=== PATIENT | male | born 1960 | race African-American/Black ===

== ENCOUNTER 2018-11-02 19:30 | Emergency (ER) | payer MEDICAID, OTHER ==
[~2018-11-02] VITALS: Ht 172.7 cm; Wt 102.0 kg
[2018-11-02] MEDS ORDERED: SODIUM CHLORIDE 0.9% 1,000 ML IV ONE (22:43)
[2018-11-02] MEDS ORDERED: MORPHINE SULFATE 4 MG/ML CPJ (NOT FOR IM USE) IV STA (22:43)
[2018-11-02] MEDS ORDERED: ONDANSETRON HCL 4MG/2ML INJ IV STA (22:43)
[2018-11-02] MEDS ORDERED: CLONIDINE 0.2MG TABLET PO ONE (22:45)
[2018-11-02] MEDS ORDERED: KETOROLAC 30MG/ML VIAL IV ONE (22:45)
[2018-11-03 00:23] LABS: BASOPHILS % 0.7 % (0.0-2.0); EOSINOPHILS % 1.1 % (0.0-5.0); HEMATOCRIT. 40.1 % (42.0-52.0); HEMOGLOBIN. 13.4 g/dL (14.0-18.0); LYMPHOCYTES % 26.4 % (20.0-50.0); MEAN CORPUSCULAR HEMOGLOBIN 29.1 pg (28.0-32.0); MEAN CORPUSCULAR VOLUME 86.9 fL (80.0-94.0); MEAN PLATELET VOLUME 8.4 fl (7.4-10.4); MONOCYTES % 5.7 % (2.0-8.0); NEUTROPHILS % 66.1 % (40.0-76.0); PLATELET 215 x1000/uL (130-400); RED BLOOD CELL COUNT 4.61 mill/uL (4.7-6.1); RED CELL DISTRIBUTION WIDTH 13.3 % (11.6-14.6)
[2018-11-03 00:30] LABS: CHLORIDE 99 mEq/L (98-107)
[2018-11-03 00:31] LABS: PROTHROMBIN TIME 9.7 sec (9.1-11.1)
[2018-11-03 00:41] LABS: CLARITY URINE CLEAR (CLEAR); COLOR URINE YELLOW (YELLOW); KETONES URINE NEGATIVE (NEGATIVE); LEUKOCYTE ESTERASE URINE NEGATIVE (NEGATIVE); NITRITE URINE NEGATIVE (NEGATIVE); OCCULT BLOOD URINE NEGATIVE (NEGATIVE); PH URINE 5.5 (4.5-8.0); PROTEIN URINE NEGATIVE (NEGATIVE); SPECIFIC GRAVITY URINE 1.009 (1.005-1.030); UROBILINOGEN URINE 0.2 E.U./dL (0.2-1.0)
[2018-11-03] MEDS ORDERED: SILVER SULFADIAZINE 1% CREAM 25GM TOP ONE (00:45)
[2018-11-03] MEDS ORDERED: MAGNESIUM CITRATE 300ML SOLUTION PO ONE (03:00)
[2018-11-03] MEDS ORDERED: POTASSIUM CHLORIDE 20MEQ TABLET SR PO NR (03:00)
[2018-11-03 03:36] VITALS: BP 142/85
== END 2018-11-03 03:44 | disposition home or self-care (01) ==
LOC: ER 19:30
DX: R10.0 Acute abdomen (principal); M54.89 Other dorsalgia; K59.00 Constipation, unspecified; I10 Essential (primary) hypertension; G40.909 Epilepsy, unspecified, not intractable, without status epilepticus
CPT/HCPCS: 36415; 74176; 80053; 81003; 83690; 84484; 85025; 85610; 93005; 96374; 96375; 99284; A4217; J1885; J2270; J2405; J7030; Z7610

== ENCOUNTER 2022-02-11 03:15 | Emergency (ER) | payer MEDICAID ==
[~2022-02-11] VITALS: Ht 170.2 cm; Wt 100.0 kg
[2022-02-11] MEDS ORDERED: IPRATROPIUM BROMIDE (0.02%) 0.5MG/2.5ML NEB HHN STA (03:52)
[2022-02-11] MEDS ORDERED: PREDNISONE 20MG TABLET PO STA (03:52)
[2022-02-11] MEDS ORDERED: ALBUTEROL (0.083%) 2.5MG/3ML NEB HHN STA (03:52)
[2022-02-11] MEDS ORDERED: LISINOPRIL 20MG TABLET PO ONE (04:00)
[2022-02-11] MEDS ORDERED: CARVEDILOL 6.25 MG TABLET PO ONE (04:00)
[2022-02-11] MEDS ORDERED: MECLIZINE 25MG TABLET PO ONE (04:00)
[2022-02-11 04:16] LABS: EOSINOPHILS % 1.9 % (0.0-5.0); HEMATOCRIT. 33.8 % (42.0-52.0); HEMOGLOBIN. 10.8 g/dL (14.0-18.0); LYMPHOCYTES % 24.9 % (20.0-50.0); MEAN CORPUSCULAR HEMOGLOBIN 27.4 pg (28.0-32.0); MEAN CORPUSCULAR VOLUME 85.7 fL (80.0-94.0); MEAN PLATELET VOLUME 7.2 fl (7.4-10.4); MONOCYTES % 6.5 % (2.0-8.0); NEUTROPHILS % 65.7 % (40.0-76.0); PLATELET 323 x1000/uL (130-400); RED BLOOD CELL COUNT 3.94 mill/uL (4.7-6.1); RED CELL DISTRIBUTION WIDTH 13.5 % (11.6-14.6)
[2022-02-11 04:45] LABS: CHLORIDE 108 mEq/L (98-107)
[2022-02-11] MEDS ORDERED: ASPIRIN 325MG TABLET PO ONE (05:15)
[2022-02-11] MEDS ORDERED: POTASSIUM CHLORIDE 20MEQ TABLET SR PO ONE (05:15)
[2022-02-11 07:02] VITALS: BP 147/86
== END 2022-02-11 07:03 | disposition left against medical advice (07) ==
LOC: ER 03:15
DX: J45.901 Unspecified asthma with (acute) exacerbation (principal); I10 Essential (primary) hypertension
CPT/HCPCS: 36415; 71045; 80053; 82962; 84484; 85025; 93005; 94640; 99285; J7512; J8597; Z7610

== ENCOUNTER 2023-03-20 15:51 | Emergency (ER) | payer MEDICAID, OTHER ==
[~2023-03-20] VITALS: Ht 185.4 cm; Wt 100.0 kg
[2023-03-20 15:54] VITALS: BP 93/45; PULSE 78; RESP 16; TEMP 99; O2SAT 99
[2023-03-20] MEDS ORDERED: SODIUM CHLORIDE 0.9% 1,000 ML IV ONE (16:00)
[2023-03-20 16:22] LABS: BASOPHILS % 0.8 % (0.0-2.0); EOSINOPHILS % 0.5 % (0.0-5.0); HEMATOCRIT. 37.5 % (42.0-52.0); HEMOGLOBIN. 12.6 g/dL (14.0-18.0); LYMPHOCYTES % 22.2 % (20.0-50.0); MEAN CORPUSCULAR HEMOGLOBIN 29.3 pg (28.0-32.0); MEAN PLATELET VOLUME 7.4 fl (7.4-10.4); MONOCYTES % 6.1 % (2.0-8.0); NEUTROPHILS % 70.4 % (40.0-76.0); PLATELET 290 x1000/uL (130-400); RED BLOOD CELL COUNT 4.31 mill/uL (4.7-6.1); RED CELL DISTRIBUTION WIDTH 14.1 % (11.6-14.6)
[2023-03-20 16:35] LABS: CHLORIDE 99 mEq/L (98-107)
[2023-03-20 16:50] LABS: ETHANOL BLOOD 96 mg/dL (-10)
[2023-03-20] MEDS ORDERED: ASPIRIN 81MG TABLET PO ONE (17:15)
[2023-03-20] MEDS ORDERED: POTASSIUM CHLORIDE 20MEQ TABLET SR PO NR (17:45)
== END 2023-03-20 17:40 | disposition left against medical advice (07) ==
LOC: ER 16:43
DX: F10.20 Alcohol dependence, uncomplicated (principal); J45.909 Unspecified asthma, uncomplicated; E78.00 Pure hypercholesterolemia, unspecified; I10 Essential (primary) hypertension; R07.89 Other chest pain
CPT/HCPCS: 80053; 80320; 83735; 85025; 84484; 36415; 93005; 96360; 99284; Z7610; J7030; G0480

== ENCOUNTER 2023-09-02 21:55 | Emergency (ER) | payer MEDICAID, OTHER ==
[~2023-09-02] VITALS: Ht 177.8 cm; Wt 80.0 kg
[2023-09-02 22:07] VITALS: O2SAT 98
[2023-09-02 23:14] LABS: BASOPHILS % 0.6 % (0.0-2.0); EOSINOPHILS % 0.5 % (0.0-5.0); HEMATOCRIT. 29.5 % (42.0-52.0); HEMOGLOBIN. 9.7 g/dL (14.0-18.0); LYMPHOCYTES % 15.4 % (20.0-50.0); MEAN CORPUSCULAR HEMOGLOBIN 27.5 pg (28.0-32.0); MEAN CORPUSCULAR VOLUME 83.5 fL (80.0-94.0); MEAN PLATELET VOLUME 7.5 fl (7.4-10.4); MONOCYTES % 5.3 % (2.0-8.0); NEUTROPHILS % 78.2 % (40.0-76.0); PLATELET 231 x1000/uL (130-400); RED BLOOD CELL COUNT 3.53 mill/uL (4.7-6.1); RED CELL DISTRIBUTION WIDTH 14.8 % (11.6-14.6); WHITE BLOOD COUNT 13.2 x1000/uL (4.5-11.0)
[2023-09-02 23:25] LABS: ALANINE AMINOTRANSFERASE 18 IU/L (10-49); ASPARTATE AMINOTRANSFERASE 19 IU/L (<34); BILIRUBIN TOTAL 0.3 mg/dL (0.1-1.0); CALCIUM 9.1 mg/dL (8.7-10.4); CARBON DIOXIDE 25 mEq/L (21-32); CHLORIDE 96 mEq/L (98-107); GLUCOSE 101 mg/dL (70-105); PROTEIN TOTAL 5.9 g/dL (6.0-8.3); SODIUM 134 mEq/L (136-145); TROPONIN I HIGH SENSITIVITY 32 ng/L (3.0-53); UREA NITROGEN BLOOD 30 mg/dL (9-23)
[2023-09-02 23:37] LABS: ETHANOL BLOOD < 10 mg/dL (<10)
[2023-09-02 23:40] LABS: POTASSIUM 2.7 mEq/L (3.5-5.1)
[2023-09-03] MEDS ORDERED: MAGNESIUM 2 G PREMIX 50 ML IV NR (00:30)
[2023-09-03] MEDS ORDERED: ASPIRIN 325MG EC TABLET PO ONE (00:45)
[2023-09-03] MEDS ORDERED: KCL 20MEQ/100ML PREMIX 100 ML IV NR ×2 (01:00→03:00)
[2023-09-03 01:54] LABS: TROPONIN I HIGH SENSITIVITY 32 ng/L (3.0-53)
[2023-09-03] MEDS ORDERED: MORPHINE SULFATE 4 MG/ML CPJ (NOT FOR IM USE) IV ONE (02:00)
[2023-09-03] MEDS ORDERED: POTASSIUM CHLORIDE 20MEQ/PACKET PO ONE (05:00)
[2023-09-03 05:03] VITALS: BP 126/62; PULSE 83; RESP 18; TEMP 98.6
== END 2023-09-03 05:11 | disposition short-term general hospital (02) ==
LOC: ER 21:55
DX: R07.89 Other chest pain (principal); E87.6 Hypokalemia; J45.909 Unspecified asthma, uncomplicated; E78.00 Pure hypercholesterolemia, unspecified; I10 Essential (primary) hypertension; F10.229 Alcohol dependence with intoxication, unspecified; Y90.0 Blood alcohol level of less than 20 mg/100 ml
CPT/HCPCS: 80053; 80320; 83880; 83735; 85025; 84484 ×2; 36415; 71045; 70450; 93005; 99285; 96374; J2270; G0480